=== PATIENT | male | born 1950 | race African-American/Black ===

== ENCOUNTER → 2020-02-05 | Emergency (ER) | payer OTHER, MEDICAID ==
[~2020-02-05] VITALS: Ht 182.9 cm; Wt 74.8 kg
[~2020-02-05] MED LIST: SODIUM CHLORIDE 0.9% 1,000 ML IV ONE
[2020-02-05 21:30] VITALS: BP 153/86
[2020-02-05 21:50] LABS: Basophils # (auto) 0 10 ^3/uL (0-0.2); Basophils % (auto) 0.4 % (0.0-2.0); Eosinophils # (auto) 0 10 ^3/uL (0-0.8); Hematocrit 38.8 % (41.0-53.0); Hemoglobin 13.2 g/dL (13.5-17.5); Lymphocytes # (auto) 0.8 10 ^3/uL (0.4-5.4); Lymphocytes % (auto) 10.9 % (10.0-50.0); Mean Corpuscular Hemoglobin 31.8 pg (28.0-32.0); Mean Corpuscular Hgb Conc. 33.9 g/dL (32.0-36.0); Mean Corpuscular Volume 93.8 fL (80.0-100.0); Monocytes # (auto) 0.8 10 ^3/uL (0-1.3); Monocytes % (auto) 10.2 % (0.0-12.0); Neutrophils # (auto) 5.8 10 ^3/uL (1.6-8.6); Neutrophils % (auto) 78.5 % (37.0-80.0); Nucleated Red Blood Cells % 0.1 %; Platelet Count (auto) 270 10^3/uL (140-450); Red Blood Cells 4.14 10^6/uL (4.5-5.90); Red Cell Distribution Width 12.8 % (11.8-14.3); White Blood Cell 7.4 10^3/uL (4.4-10.8)
[2020-02-05 22:12] LABS: Albumin 3.9 g/dL (3.4-5.0); BUN/Creatinine Ratio 14.7; Potassium 3.7 mmol/L (3.5-5.1)
[2020-02-05 22:15] LABS: Bilirubin, Total 0.7 mg/dL (0.2-1.0); Total Protein 9.2 g/dL (6.4-8.2)
== END | disposition home or self-care (01) ==
LOC: EDBD 21:00 → ER 21:05
DX: R30.0 Dysuria (principal); R44.3 Hallucinations, unspecified
CPT/HCPCS: 36415; 80053; 85025